=== PATIENT | male | born 1970 | race Caucasian/White ===

== ENCOUNTER 2023-02-25 08:35 | Day surgery (SDC) | payer BC ==
[2023-02-20 09:05] VITALS: BMI 27.1
[~2023-02-25 08:35] MED LIST: LACTATED RINGERS 1,000 ML IV SCH; LIDOCAINE 1% (10MG/ML) FOR IV START INTRADERMA PRN
[2023-02-25 08:54] VITALS: TEMP 97.5
[2023-02-25] MEDS ORDERED: LIDOCAINE 2% INJ 20 MG/ML (2 ML VIAL) ONE (09:23)
[2023-02-25] MEDS ORDERED: PROPOFOL 10 MG/ML 20 ML VIAL IV ONE (09:23)
--- NOTE | 2023-02-25 09:29 | P.GSHP ---
History of Present Illness H&P Date: 02/25/23 Chief Complaint: Colon cancer screening 52-year-old male here today for colonoscopy. Patient has not had 1 previously. No bowel complaints however patient states with wiping he noticed some blood just today. No family history of colon cancer. Past Medical History Past Medical History: No Reported History History of Any Multi-Drug Resistant Organisms: None Reported Past Surgical History: Appendectomy, Cholecystectomy Past Anesthesia/Blood Transfusion Reactions: No Reported Reaction Past Psychological History: No Psychological Hx Reported Smoking Status: Current every day smoker Past Drug Use History: Marijuana Additional Drug Use History / Comment(s): daily marijuana use aware to withhold for 24 hours prior to procedure - Past Family History Father Family Medical History: Cancer Additional Family Medical History / Comment(s): lung Medications and Allergies Home Medications Medication Instructions Recorded Confirmed Type Mv-Min/Vit C/Glut/Lysine/Hc124 1 tablet PO DAILY 02/20/23 02/20/23 History [Airborne Tablet Chewable] Allergies Allergy/AdvReac Type Severity Reaction Status Date / Time No Known Allergies Allergy Verified 02/25/23 08:50 Surgical - Exam Vital Signs Temp Pulse Resp BP Pulse Ox 97.5 F L 80 16 115/68 98 02/25/23 08:53 02/25/23 08:53 02/25/23 08:53 02/25/23 08:53 02/25/23 08:53 Physical exam: General: Well-developed, well-nourished HEENT: Normocephalic, sclerae nonicteric Abdomen: Nontender, nondistended Extremities: No edema Neuro: Alert and oriented Assessment and Plan (1) Colon cancer screening Narrative/Plan: Will proceed with colonoscopy at this time. Current Visit: Yes Status: Acute Code(s): Z12.11 - ENCOUNTER FOR SCREENING FOR MALIGNANT NEOPLASM OF COLON SNOMED Code(s): 373433619
--- NOTE | 2023-02-25 09:45 | P.PCN ---
Date of Procedure: 02/25/23 Procedure(s) Performed: PREOPERATIVE DIAGNOSIS: Colon cancer screening POSTOPERATIVE DIAGNOSIS: Ileocecal valve lesion, rectal polyp 5 PROCEDURE: Colonoscopy with biopsy and snare polypectomy ANESTHESIA: MAC SURGEON: Yunior Sheffield M.D. SPECIMENS: Polyps ENDOSCOPIC PROCEDURE: The patient was placed on the endoscopy table in the left decubitus position. The Olympus colonoscope was inserted into the anus and passed under direct visualization to the base of the cecum. The appendiceal orifice was visualized. From that point the scope was slowly withdrawn inspecting all surfaces carefully. There were no neoplastic inflammatory or polypoid lesions at the base of the cecum. On the ileocecal valve itself was a flat 3 cm slightly raised lesion. This may have represented adenomatous tissue. This was not felt to be amenable to snare retrieval at this time. A biopsy using the cold biopsy forceps of this ileocecal valve lesion took place. The transverse descending sigmoid colon appeared normal. There was no visible diverticulosis. The rectum revealed 5 separate polypoid lesions all removed using the snare with cautery technique. Digital rectal examination was normal. The patient was taken to the recovery room in stable condition per anesthesia guidelines. RECOMMENDATIONS: Await biopsy results. May require referral to advanced endoscopy based on ileocecal valve biopsy results.
[2023-02-25 10:04] VITALS: BP 131/88; PULSE 74; RESP 17
== END 2023-02-25 10:24 | disposition home or self-care (01) ==
LOC: ORWHC2ENDO 08:35
PROVIDERS: ATTEND Surgery
DX: Z12.11 Encounter for screening for malignant neoplasm of colon (principal); D12.8 Benign neoplasm of rectum; Z90.49 Acquired absence of other specified parts of digestive tract; F17.200 Nicotine dependence, unspecified, uncomplicated; F12.90 Cannabis use, unspecified, uncomplicated; Z80.1 Family history of malignant neoplasm of trachea, bronchus and lung; Z79.899 Other long term (current) drug therapy
CPT/HCPCS: 88305; 45380; 45385; J2704; J2001

== ENCOUNTER 2025-03-15 08:33 | Day surgery (SDC) | payer BC ==
[~2025-03-15 08:33] MED LIST changes: -LACTATED RINGERS 1,000 ML IV SCH
[2025-03-15 08:56] VITALS: TEMP 98.5
[2025-03-15] MEDS: LACTATED RINGERS 1,000 ML IV SCH (09:02)
[2025-03-15] MEDS: IV FLUID CONTINUATION 1,000 ML IV ONE (09:02)
[2025-03-15] MEDS ORDERED: PROPOFOL 10 MG/ML 20 ML VIAL IV ONE (09:16)
--- NOTE | 2025-03-15 09:38 | P.PCN ---
Date of Procedure: 03/15/25 Procedure(s) Performed: PREOPERATIVE DIAGNOSIS: Rectal bleeding with history of polyps POSTOPERATIVE DIAGNOSIS: Colon polyps, hemorrhoids PROCEDURE: Colonoscopy with snare polypectomy, anoscopy with banding ANESTHESIA: MAC SURGEON: Yunior Sheffield M.D. SPECIMENS: Polyps ENDOSCOPIC PROCEDURE: The patient was placed on the endoscopy table in the left decubitus position. The Olympus colonoscope was inserted into the anus and passed under direct visualization to the base of the cecum. The appendiceal crystal fice was visualized. From that point the scope was slowly withdrawn inspecting all surfaces carefully. There were no neoplastic inflammatory or polypoid lesions throughout the cecum and ascending colon. In the transverse colon there were 2 small polyps removed using the snare with cautery technique. The descending and sigmoid colon appeared normal. In the rectum there was a small polyp that was removed using a snare with cautery technique as well. Retroflexion revealed a prominent area of internal hemorrhoids in the right position. The anoscope was then utilized. The patient had a prominent internal hemorrhoid in the right lateral and posterior location. Both of these internal hemorrhoids were banded using the suction banding technique. No bleeding was seen. The patient was taken to the recovery room in stable condition per anesthesia guidelines. RECOMMENDATIONS: Await biopsy results. Will contact patient with timing for next colonoscopy.
[2025-03-15 09:52] VITALS: RESP 16
[2025-03-15 09:55] VITALS: BP 143/81; PULSE 76
== END 2025-03-15 10:49 | disposition home or self-care (01) ==
LOC: ORWHC2ENDO 08:33
PROVIDERS: ATTEND Surgery
DX: D12.3 Benign neoplasm of transverse colon (principal); K62.1 Rectal polyp; K64.8 Other hemorrhoids; F17.210 Nicotine dependence, cigarettes, uncomplicated; Z79.899 Other long term (current) drug therapy
CPT/HCPCS: 45385; 46221; J2704; 88305